=== PATIENT | female | born 1965 | race Caucasian/White ===

== ENCOUNTER 2021-05-26 07:14 | Observation (INO) | payer OTHER ==
[~2021-05-26] VITALS: Ht 160 cm; Wt 85.7 kg
[2021-05-26 08:16] LABS: RED BLOOD COUNT 4.68 M/UL (4.00-5.10)
[2021-05-26 08:43] LABS: BUN/CREATININE RATIO 26 (0-10)
[2021-05-26] MEDS ORDERED: PROTONIX 40 MG40 M1 PO (13:55)
[2021-05-26] MEDS ORDERED: FENOGLIDE120 MG PO (13:56)
[2021-05-26] MEDS ORDERED: WELLBUTRIN XL300 MG PO (13:56)
[2021-05-26] MEDS ORDERED: VITAMIN D3125 MCG PO (13:57)
[2021-05-27 04:10] LABS: HEMOGLOBIN 14.3 gm/dl (12.3-15.3); RED BLOOD COUNT 4.71 M/UL (4.00-5.10); WHITE BLOOD COUNT 6.4 K/UL (4.5-11.0)
[2021-05-27 04:26] LABS: BUN/CREATININE RATIO 20 (0-10)
[2021-05-27] MEDS ORDERED: ASPIRIN EC81 MG PO (10:14)
[2021-05-27] MEDS ORDERED: NEXLETOL180 MG PO (14:03)
== END 2021-05-27 14:50 | disposition home or self-care (01) ==
LOC: ER1 07:14 → CDU 09:21 → 3 EAST 09:21
PROVIDERS: Physician Assistant; ADMIT Internal Medicine
DX: R07.89 Other chest pain (principal); Z20.822 Contact with and (suspected) exposure to COVID-19; E78.5 Hyperlipidemia, unspecified; E11.9 Type 2 diabetes mellitus without complications; K21.9 Gastro-esophageal reflux disease without esophagitis; K44.9 Diaphragmatic hernia without obstruction or gangrene; J98.11 Atelectasis; Z79.899 Other long term (current) drug therapy; Z87.891 Personal history of nicotine dependence; Z91.041 Radiographic dye allergy status
CPT/HCPCS: ECHO; 0240U; 36415; 71045; 71046; 78452; 80048; 80053; 80061; 82550; 82553; 82962; 83874; 84484; 85025; 85379; 93005; 93017; 93306; 99285; A9502; G0378; J2785